=== PATIENT | male | born 1980 | race Caucasian/White ===

== ENCOUNTER 2017-10-24 15:22 | Inpatient (IN) | payer OTHER ==
[2017-10-24 18:42] VITALS: BMI 26.4
--- NOTE | 2017-10-24 21:01 | HP ---
Admission [facility] Chief Complaint: alcohol and marijuana rehab Allergies/Adverse Reactions: Allergies Allergy/AdvReac Type Severity Reaction Status Date / Time No Known Allergies Allergy Verified 10/24/17 19:24 History of Present Illness: 36 yo male with hx of nicotine, alcohol, marijuana, dependence is here seeking rehab, reports first time seeking treatment or current condition. Reports was seen at [facility] yesterday. PMHX: asthma. Denies any psychiatric problems. Denies suicidal ideation. Longest period of sobriety seven years. Exam Limitations: No Limitations - Ebola screening Have you traveled outside of the country in the last 21 days: No (N) Have you had contact with anyone from an Ebola affected area: No Have you been sick,other than usual withdrawal symptoms: No Do you have a fever: No - Review of Systems Constitutional: Changes in sleep EENT: reports: No Symptoms Reported Respiratory: reports: Wheezing Cardiac: reports: No Symptoms Reported GI: reports: No Symptoms Reported : reports: No Symptoms Reported Musculoskeletal: reports: Joint Pain, Other Integumentary: reports: No Symptoms Reported Neuro: reports: No Symptoms reported Endocrine: reports: Increased Thirst Hematology: reports: No Symptoms Reported Psychiatric: reports: Orientated x3, Agitated Other Systems: Reviewed and Negative Patient History - Patient Medical History Hx Anemia: No Hx Asthma: Yes Hx Chronic Obstructive Pulmonary Disease (COPD): No Hx Cancer: No Hx Cardiac Disorders: No Hx Congestive Heart Failure: No Hx Hypertension: No Hx Hypercholesterolemia: No Hx Pacemaker: No HX Cerebrovascular Accident: No Hx Seizures: No Hx Dementia: No Hx Diabetes: No Hx Gastrointestinal Disorders: No Hx Liver Disease: No Hx Genitourinary Disorders: No Hx Sexually Transmitted Disorders: No Hx Renal Disease (ESRD): No Hx Thyroid Disease: No Hx Human Immunodeficiency Virus (HIV): No (declines testing ) Hx Hepatitis C: No Hx Depression: No Hx Suicide Attempt: No Hx Bipolar Disorder: No Hx Schizophrenia: No - Patient Surgical History Past Surgical History: Yes Hx Neurologic Surgery: No Hx Cataract Extraction: No Hx Cardiac Surgery: No Hx Lung Surgery: No Hx Breast Surgery: No Hx Breast Biopsy: No Hx Abdominal Surgery: No Hx Appendectomy: No Hx Cholecystectomy: No Hx Genitourinary Surgery: No Hx Section: No Other Surgical History: Toncillectomy Anesthesia Reaction: No - PPD History Previous Implant?: Yes Documented Results: Negative w/o proof Implanted On Prior [facility] Admission?: No PPD to be Administered?: Yes - Smoking Cessation Smoking history: Current every day smoker Have you smoked in the past 12 months: Yes Aproximately how many cigarettes per day: 20 Hx Chewing Tobacco Use: No Initiated information on smoking cessation: Yes 'Breaking Loose' booklet given: 10/24/17 - Substance & Tx. History Hx Alcohol Use: Yes Hx Substance Use: Yes Substance Use Type: Alcohol Hx Substance Use Treatment: No - Substances Abused Alcohol Route: Oral Frequency: Daily Amount used: 24 oz beer Age of first use: 16 Date of Last Use: 10/24/17 Marijuana/Hashish Route: Smoking Frequency: 1-3 times last 30 days Amount used: 1 oz Date of Last Use: 08/24/17 Family Disease History - Family Disease History Family History: Denies Admission Physical Exam BHS - Vital Signs Vital Signs: Vital Signs - 24 hr 10/24/17 18:38 Temperature 97.8 F Pulse Rate 98 H Respiratory 18 Rate Blood Pressure 154/84 - Physical General Appearance: Yes: Disheveled, Thin, Sweating, Anxious HEENTM: Yes: EOMI, Hearing grossly Normal, Normal ENT Inspection, Normocephalic , Normal Voice, BLAYNE, Pharynx Normal, Tm's normal Respiratory: Yes: Chest Non-Tender, No Respiratory Distress, No Accessory Muscle Use, Wheezing Neck: Yes: Within Normal Limits Breast: Yes: Breast Exam Deferred Cardiology: Yes: Regular Rhythm, Regular Rate Abdominal: Yes: Normal Bowel Sounds, Non Tender, Flat, Soft Genitourinary: Yes: Within Normal Limits Back: Yes: Normal Inspection Musculoskeletal: Yes: full range of Motion, Gait Steady, Pelvis Stable Extremities: Yes: Normal Capillary Refill, Normal Inspection, Normal Range of Motion, Non-Tender Neurological: Yes: pump installation and servicer II-XII NML intact, Fully Oriented, Alert, Motor Strength 5/5, Depressed Affect Integumentary: Yes: Normal Color, Warm, Diaphoresis Lymphatic: Yes: Within Normal Limits - Diagnostic (1) Elevated blood pressure reading in office without diagnosis of hypertension Current Visit: Yes Status: Acute (2) Asthma Current Visit: Yes Status: Chronic Qualifiers: Asthma severity: moderate Asthma complication type: with acute exacerbation (3) Wheezing Current Visit: Yes Status: Acute (4) Alcohol dependence Current Visit: Yes Status: Acute Qualifiers: Substance use status: uncomplicated Qualified Code(s): F10.20 - Alcohol dependence, uncomplicated (5) Marijuana dependence Current Visit: Yes Status: Acute BHS Breath Alcohol Content Breath Alcohol Content: 0 Urine Drug Screen - Results Drug Screen Negative: Yes Inpatient Rehab Admission - Initial Determination Are CD services needed?: Yes Free of communicable disease: Yes Not in need of hospitalization: Yes - Rehab Admission Criteria Previous failed treatment: Yes Poor recovery environment: Yes Comorbidities: Yes Lacks judgement: Yes Patient is meeting Inpatient Rehab admission criteria:: Yes
[2017-10-24] MEDS ORDERED: MAGNESIUM CITRATE 300 ML BOTTLE PO PRN (21:06)
[2017-10-24] MEDS ORDERED: ACETAMINOPHEN 325 MG TABLET (FP) PO PRN (21:06)
[2017-10-24] MEDS ORDERED: MAGNESIUM HYDROX 2400MG/30ML ORAL SUSPENSION 30 ML CUP PO PRN (21:06)
[2017-10-24] MEDS ORDERED: P-EPHED 60MG/TRIPROLIDI 2.5MG TABLET PO PRN (21:06)
[2017-10-24] MEDS ORDERED: MENTHOL/PHENOL 1 EACH UD MM PRN (21:06)
[2017-10-24] MEDS ORDERED: LOPERAMIDE HCL 2 MG CAPSULE PO PRN (21:06)
[2017-10-24] MEDS ORDERED: ALBUTEROL SO4 0.083% IH SOL 2.5 MG/3 ML VIAL.NEB. NEB PRN (21:06)
[2017-10-25] MEDS: predniSONE 20 MG TABLET (UD) PO SCH ×2 (01:00→11:09)
[2017-10-25] MEDS: THIAMINE HCL 100 MG TABLET (FP) PO SCH ×2 (01:00→21:10)
[2017-10-25 01:07] LABS: URINE APPEARANCE CLEAR; URINE BILIRUBIN NEGATIVE (<2.0 mg/dL); URINE COLOR STRAW; URINE GLUCOSE (UA) NEGATIVE (NEGATIVE); URINE KETONE NEGATIVE (NEGATIVE); URINE LEUK ESTERASE NEGATIVE (NEGATIVE); URINE NITRITE NEGATIVE (NEGATIVE); URINE PROTEIN NEGATIVE (NEGATIVE); URINE UROBILINOGEN NEGATIVE mg/dL (0.2-1.0)
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
[2017-10-25] MEDS: PRENATAL VITAMINS W/ FOLIC ACID TABLET (FP) PO SCH (09:57)
[2017-10-25] MEDS: NICOTINE 14 MG/24 HOURS TOPICAL PATCH TD SCH (09:58)
[2017-10-25] MEDS: NICOTINE POLACRILEX 2 MG GUM BC PRN ×4 (10:02→21:11)
[2017-10-25] MEDS: ALBUTEROL SO4 2.5/IPRATROPIUM 0.5 INH SOL 3 ML VIAL.NEB. NEB PRN ×2 (12:54→19:06)
--- NOTE | 2017-10-25 12:59 | PN ---
S Progress Note Note: Vital Signs Temperature 97.8 F 10/24/17 18:38 Pulse Rate 102 H 10/24/17 21:00 Respiratory Rate 16 10/25/17 06:51 Blood Pressure 134/85 10/24/17 21:00 O2 Sat by Pulse Oximetry (%) Patient hx of asthma, request for albuterol inhaler order place continue to monitor
--- NOTE | 2017-10-25 13:16 | EKG ---
Test Reason : Blood Pressure : / mmHG Vent. Rate : 101 BPM Atrial Rate : 101 BPM P-R Int : 142 ms QRS Dur : 076 ms QT Int : 282 ms P-R-T Axes : 075 058 -02 degrees QTc Int : 365 ms SINUS TACHYCARDIA T WAVE ABNORMALITY, CONSIDER INFERIOR ISCHEMIA ABNORMAL ECG NO PREVIOUS ECGS AVAILABLE Confirmed by Ronnell Ramírez MD ([id number]) on 10/25/2017 1:16:08 PM Referred By: Confirmed By:Ronnell Ramírez MD
[2017-10-25 14:56] LABS: HEMATOCRIT 39.9 % (35.4-49); HEMOGLOBIN 13.6 GM/dL (11.7-16.9); MCH 30.7 pg (25.7-33.7); MCHC 34.2 g/dl (32.0-35.9); MEAN PLT VOLUME 8.4 fl (7.5-11.1); PLATELET COUNT 238 K/MM3 (134-434); RBC 4.44 M/mm3 (4.00-5.60); RDW 13.4 % (11.9-15.9); WHITE BLOOD COUNT 8.6 K/mm3 (4.0-10.0)
[2017-10-25 15:10] LABS: CHLORIDE 106 mmol/L (98-107); POTASSIUM 4.3 mmol/L (3.5-5.1); SODIUM 140 mmol/L (136-145)
[2017-10-25 15:18] LABS: ALBUMIN 3.9 g/dl (3.4-5.0); ALK PHOS 74 U/L (45-117); ANION GAP 5 MMOL/L (8-16); BILIRUBIN,TOTAL 0.6 mg/dL (0.2-1.0); BLOOD UREA NITROGEN 11 mg/dL (7-18); CALCIUM 8.9 mg/dL (8.5-10.1); CO2 29 mmol/L (21-32); CREATININE 0.8 mg/dL (0.7-1.3); GLUCOSE,RANDOM 94 mg/dL (74-106); SGOT/AST 20 U/L (15-37); SGPT/ALT 24 U/L (12-78)
[2017-10-25] MEDS: ALBUTEROL SO4 8 GM HFA INHALER IH PRN (18:30)
[2017-10-25] MEDS: hydrOXYzine PAMOATE 50 MG CAPSULE (FP) PO SCH (21:38)
[2017-10-26] MEDS: hydrOXYzine PAMOATE 50 MG CAPSULE (FP) PO SCH ×3 (07:45→21:10)
[2017-10-26] MEDS: NICOTINE 14 MG/24 HOURS TOPICAL PATCH TD SCH (11:00)
[2017-10-26] MEDS: PRENATAL VITAMINS W/ FOLIC ACID TABLET (FP) PO SCH (11:00)
[2017-10-26] MEDS: predniSONE 20 MG TABLET (UD) PO SCH (11:00)
[2017-10-26] MEDS: NICOTINE POLACRILEX 2 MG GUM BC PRN ×3 (11:06→19:48)
[2017-10-26] MEDS: guaiFENesin/D-METHORPHAN HB 10 ML UNIT-DOSE CUPS PO PRN ×2 (11:06→21:11)
[2017-10-26] MEDS: ALBUTEROL SO4 8 GM HFA INHALER IH PRN ×2 (14:17→19:48)
[2017-10-26] MEDS: THIAMINE HCL 100 MG TABLET (FP) PO SCH (21:10)
[2017-10-26] MEDS: MAG HYDROX/AL HYDROX/SIMETH 30 ML UNIT-DOSE CUP PO PRN (21:10)
[2017-10-27] MEDS: NICOTINE POLACRILEX 2 MG GUM BC PRN ×4 (02:47→18:42)
[2017-10-27] MEDS: hydrOXYzine PAMOATE 50 MG CAPSULE (FP) PO SCH ×3 (06:28→21:07)
[2017-10-27] MEDS: NICOTINE 14 MG/24 HOURS TOPICAL PATCH TD SCH (09:55)
[2017-10-27] MEDS: PRENATAL VITAMINS W/ FOLIC ACID TABLET (FP) PO SCH (09:56)
[2017-10-27] MEDS: ALBUTEROL SO4 8 GM HFA INHALER IH PRN (09:57)
[2017-10-27] MEDS: guaiFENesin/D-METHORPHAN HB 10 ML UNIT-DOSE CUPS PO PRN ×2 (13:13→18:42)
--- NOTE | 2017-10-27 14:19 | PN ---
S Progress Note Note: Vital Signs Temperature 97.1 F L 10/27/17 06:53 Pulse Rate 75 10/27/17 06:53 Respiratory Rate 18 10/27/17 06:53 Blood Pressure 104/76 10/27/17 06:53 O2 Sat by Pulse Oximetry (%) c/o of hx of sciatica on the left hip. C/O of left hip pain, denies any trauma to the area patient Aox3 no distress no adventitious breath sounds skin intact full ROM, no joint erythema or effusion left knee pain Plan: ibuprofen PRN cold compress elevate the extremity as needed continue to monitor
[2017-10-27] MEDS: IBUPROFEN 400 MG TABLET (FP) PO PRN (18:45)
[2017-10-27] MEDS: THIAMINE HCL 100 MG TABLET (FP) PO SCH (21:07)
[2017-10-27] MEDS: MELATONIN 5 MG TABLETS PO PRN (21:07)
[2017-10-28] MEDS: hydrOXYzine PAMOATE 50 MG CAPSULE (FP) PO SCH ×3 (07:16→21:00)
[2017-10-28] MEDS: NICOTINE 14 MG/24 HOURS TOPICAL PATCH TD SCH (09:50)
[2017-10-28] MEDS: PRENATAL VITAMINS W/ FOLIC ACID TABLET (FP) PO SCH (09:50)
[2017-10-28] MEDS: NICOTINE POLACRILEX 2 MG GUM BC PRN ×2 (09:50→20:26)
[2017-10-28] MEDS: ALBUTEROL SO4 8 GM HFA INHALER IH PRN ×2 (09:56→20:25)
[2017-10-28] MEDS: guaiFENesin/D-METHORPHAN HB 10 ML UNIT-DOSE CUPS PO PRN (09:57)
[2017-10-28] MEDS ORDERED: AZITHROMYCIN 250 MG TABLET PO ONE (14:00)
[2017-10-28] MEDS ORDERED: predniSONE 20 MG TABLET (UD) PO ONE (14:00)
[2017-10-28] MEDS: THIAMINE HCL 100 MG TABLET (FP) PO SCH (21:00)
[2017-10-29] MEDS: NICOTINE POLACRILEX 2 MG GUM BC PRN (07:02)
[2017-10-29] MEDS: hydrOXYzine PAMOATE 50 MG CAPSULE (FP) PO SCH ×3 (07:02→21:04)
[2017-10-29] MEDS: PRENATAL VITAMINS W/ FOLIC ACID TABLET (FP) PO SCH (09:42)
[2017-10-29] MEDS: AZITHROMYCIN 250 MG TABLET PO SCH (09:42)
[2017-10-29] MEDS: NICOTINE 14 MG/24 HOURS TOPICAL PATCH TD SCH (09:43)
[2017-10-29] MEDS ORDERED: predniSONE 10 MG TABLET (UD) PO ONE (10:00)
[2017-10-29] MEDS: THIAMINE HCL 100 MG TABLET (FP) PO SCH (21:04)
[2017-10-30] MEDS: hydrOXYzine PAMOATE 50 MG CAPSULE (FP) PO SCH ×3 (07:32→21:04)
[2017-10-30] MEDS: AZITHROMYCIN 250 MG TABLET PO SCH (09:31)
[2017-10-30] MEDS: NICOTINE 14 MG/24 HOURS TOPICAL PATCH TD SCH (09:32)
[2017-10-30] MEDS: PRENATAL VITAMINS W/ FOLIC ACID TABLET (FP) PO SCH (09:32)
[2017-10-30] MEDS: guaiFENesin/D-METHORPHAN HB 10 ML UNIT-DOSE CUPS PO PRN ×2 (09:33→21:04)
[2017-10-30] MEDS: NICOTINE POLACRILEX 2 MG GUM BC PRN (09:35)
[2017-10-30] MEDS ORDERED: predniSONE 20 MG TABLET (UD) PO ONE (10:00)
[2017-10-30] MEDS: THIAMINE HCL 100 MG TABLET (FP) PO SCH (21:04)
[2017-10-30] MEDS: ALBUTEROL SO4 8 GM HFA INHALER IH PRN (21:05)
[2017-10-31] MEDS: hydrOXYzine PAMOATE 50 MG CAPSULE (FP) PO SCH ×4 (07:49→22:14)
[2017-10-31] MEDS: AZITHROMYCIN 250 MG TABLET PO SCH (09:56)
[2017-10-31] MEDS: NICOTINE 14 MG/24 HOURS TOPICAL PATCH TD SCH (09:56)
[2017-10-31] MEDS: PRENATAL VITAMINS W/ FOLIC ACID TABLET (FP) PO SCH (09:56)
[2017-10-31] MEDS ORDERED: predniSONE 10 MG TABLET (UD) PO ONE (10:00)
--- NOTE | 2017-10-31 13:37 | PN ---
[facility] Progress Note Note: Vital Signs Temperature 97.9 F 10/29/17 07:03 Pulse Rate 83 10/29/17 07:03 Respiratory Rate 18 10/31/17 03:30 Blood Pressure 141/75 10/29/17 07:03 O2 Sat by Pulse Oximetry (%) Patient c/o of not feeling well and wheezing. Patient was treated last week with z-pack reports no relief c/o of ongoing cough. Patient on end of prednisone jay received 10 mg today. Reports poor adherence with following orders for nebulizer treatment. Aox3 no distress no JVD, s1 and s2 + cough and b/l lower lobe wheezing present , no repiratory distress full ROM ambualting in the unit skin intact, no edema present - asthma exacerbation Plan: Prednisone jay adjusted: today additional : 20mg = 30 mg for the day 11/01/17 : 20 mg 11/02/17 : 10 11/03/17 : 5 mg DueoNEB PRN as ordered montelukast 10 mg QHS guafinessin PRN increase fluids chest x-ray in AM rest for today continue to monitor
[2017-10-31] MEDS ORDERED: predniSONE 20 MG TABLET (UD) PO ONE (14:00)
[2017-10-31] MEDS: IBUPROFEN 400 MG TABLET (FP) PO PRN (19:21)
[2017-10-31] MEDS: THIAMINE HCL 100 MG TABLET (FP) PO SCH (22:15)
[2017-10-31] MEDS: MONTELUKAST NA 10 MG TABLET PO SCH (22:16)
[2017-10-31] MEDS: NICOTINE POLACRILEX 2 MG GUM BC PRN (22:17)
[2017-11-01] MEDS: hydrOXYzine PAMOATE 50 MG CAPSULE (FP) PO SCH ×3 (07:36→21:09)
[2017-11-01] MEDS: NICOTINE 14 MG/24 HOURS TOPICAL PATCH TD SCH (09:34)
[2017-11-01] MEDS: PRENATAL VITAMINS W/ FOLIC ACID TABLET (FP) PO SCH (09:34)
[2017-11-01] MEDS: ALBUTEROL SO4 8 GM HFA INHALER IH PRN (09:35)
[2017-11-01] MEDS: NICOTINE POLACRILEX 2 MG GUM BC PRN ×2 (09:36→14:21)
[2017-11-01] MEDS ORDERED: predniSONE 5 MG TABLET (UD) PO ONE (10:00)
[2017-11-01] MEDS ORDERED: predniSONE 10 MG TABLET (UD) PO ONE ×2 (13:30)
--- NOTE | 2017-11-01 13:37 | PN ---
[facility] Progress Note Note: Vital Signs Temperature 97.9 F 11/01/17 11:14 Pulse Rate 83 10/29/17 07:03 Respiratory Rate 18 11/01/17 03:30 Blood Pressure 133/77 11/01/17 11:14 O2 Sat by Pulse Oximetry (%) Patient requested consult for alopecia and link to vocational training. c/o of night cough. patient Aox3 no distress lungs clear throughout s1 s4 no JVD full ROM ambulating in the unit chest x-ray negative for pathology -asthma plan; continue prednisone jay increase fluids duoneb as needed patient educated to follow up with aircraft engine assembler regarding alopecia.patient verbalized understaning. continue to monitor
[2017-11-01] MEDS: MONTELUKAST NA 10 MG TABLET PO SCH (21:09)
[2017-11-01] MEDS: THIAMINE HCL 100 MG TABLET (FP) PO SCH (21:09)
[2017-11-02] MEDS: hydrOXYzine PAMOATE 50 MG CAPSULE (FP) PO SCH ×3 (06:07→21:04)
[2017-11-02] MEDS: NICOTINE 14 MG/24 HOURS TOPICAL PATCH TD SCH (10:30)
[2017-11-02] MEDS: PRENATAL VITAMINS W/ FOLIC ACID TABLET (FP) PO SCH (11:00)
--- NOTE | 2017-11-02 13:05 | PN ---
[facility] Progress Note Note: Vital Signs Temperature 98 F 11/02/17 06:39 Pulse Rate 70 11/02/17 06:39 Respiratory Rate 18 11/02/17 06:39 Blood Pressure 112/81 11/02/17 06:39 O2 Sat by Pulse Oximetry (%) Patient currently medically stable, continues with mild cough which has improved over the past couple of days. Chest x-ray negative for pathology. Patient may continue to resume group activities increase fluids continue to monitor
[2017-11-02] MEDS ORDERED: predniSONE 10 MG TABLET (UD) PO ONE (13:33)
[2017-11-02] MEDS: MONTELUKAST NA 10 MG TABLET PO SCH (21:04)
[2017-11-02] MEDS: THIAMINE HCL 100 MG TABLET (FP) PO SCH (21:04)
[2017-11-03] MEDS: hydrOXYzine PAMOATE 50 MG CAPSULE (FP) PO SCH ×3 (07:33→21:04)
[2017-11-03] MEDS: PRENATAL VITAMINS W/ FOLIC ACID TABLET (FP) PO SCH (10:31)
[2017-11-03] MEDS: IBUPROFEN 400 MG TABLET (FP) PO PRN (10:31)
[2017-11-03] MEDS: NICOTINE 14 MG/24 HOURS TOPICAL PATCH TD SCH (10:31)
[2017-11-03] MEDS ORDERED: BENZOCAINE 20 % GEL TUBE MM PRN (12:38)
--- NOTE | 2017-11-03 12:39 | PN ---
[facility] Progress Note Note: Vital Signs Temperature 98 F 11/02/17 06:39 Pulse Rate 70 11/02/17 06:39 Respiratory Rate 18 11/03/17 07:15 Blood Pressure 112/81 11/02/17 06:39 O2 Sat by Pulse Oximetry (%) c/o of dental pain anbesol pen ibuprofen prn continue to monitor
[2017-11-03] MEDS ORDERED: LIDOCAINE VISCOUS 2% ORAL/TOP 100 ML BOTTLE MM PRN (13:03)
[2017-11-03] MEDS ORDERED: predniSONE 5 MG TABLET (UD) PO ONE (13:34)
[2017-11-03] MEDS: MONTELUKAST NA 10 MG TABLET PO SCH (21:04)
[2017-11-03] MEDS: THIAMINE HCL 100 MG TABLET (FP) PO SCH (21:04)
[2017-11-03] MEDS: NICOTINE POLACRILEX 2 MG GUM BC PRN (21:05)
[2017-11-04] MEDS: hydrOXYzine PAMOATE 50 MG CAPSULE (FP) PO SCH ×3 (06:30→21:03)
[2017-11-04] MEDS: NICOTINE POLACRILEX 2 MG GUM BC PRN ×3 (09:40→15:44)
[2017-11-04] MEDS: PRENATAL VITAMINS W/ FOLIC ACID TABLET (FP) PO SCH (09:40)
[2017-11-04] MEDS: NICOTINE 14 MG/24 HOURS TOPICAL PATCH TD SCH (09:41)
[2017-11-04] MEDS: THIAMINE HCL 100 MG TABLET (FP) PO SCH (21:03)
[2017-11-04] MEDS: MONTELUKAST NA 10 MG TABLET PO SCH (21:03)
[2017-11-05] MEDS: hydrOXYzine PAMOATE 50 MG CAPSULE (FP) PO SCH ×3 (07:05→21:08)
[2017-11-05] MEDS: PRENATAL VITAMINS W/ FOLIC ACID TABLET (FP) PO SCH (09:45)
[2017-11-05] MEDS: NICOTINE 14 MG/24 HOURS TOPICAL PATCH TD SCH (09:46)
[2017-11-05] MEDS: NICOTINE POLACRILEX 2 MG GUM BC PRN ×4 (09:46→22:11)
[2017-11-05] MEDS: MONTELUKAST NA 10 MG TABLET PO SCH (21:08)
[2017-11-05] MEDS: THIAMINE HCL 100 MG TABLET (FP) PO SCH (21:08)
[2017-11-06] MEDS: hydrOXYzine PAMOATE 50 MG CAPSULE (FP) PO SCH ×3 (06:54→23:12)
[2017-11-06] MEDS: PRENATAL VITAMINS W/ FOLIC ACID TABLET (FP) PO SCH (10:17)
[2017-11-06] MEDS: NICOTINE 14 MG/24 HOURS TOPICAL PATCH TD SCH (10:17)
[2017-11-06] MEDS: IBUPROFEN 400 MG TABLET (FP) PO PRN (14:51)
[2017-11-06] MEDS: NICOTINE POLACRILEX 2 MG GUM BC PRN (16:20)
[2017-11-06] MEDS: THIAMINE HCL 100 MG TABLET (FP) PO SCH (23:12)
[2017-11-06] MEDS: MONTELUKAST NA 10 MG TABLET PO SCH (23:12)
[2017-11-07] MEDS: hydrOXYzine PAMOATE 50 MG CAPSULE (FP) PO SCH ×3 (06:42→21:12)
[2017-11-07] MEDS: PRENATAL VITAMINS W/ FOLIC ACID TABLET (FP) PO SCH (09:37)
[2017-11-07] MEDS: NICOTINE 14 MG/24 HOURS TOPICAL PATCH TD SCH (09:37)
[2017-11-07] MEDS: NICOTINE POLACRILEX 2 MG GUM BC PRN ×3 (09:39→21:14)
[2017-11-07] MEDS: MAG HYDROX/AL HYDROX/SIMETH 30 ML UNIT-DOSE CUP PO PRN (17:53)
[2017-11-07] MEDS: MONTELUKAST NA 10 MG TABLET PO SCH (21:12)
[2017-11-07] MEDS: THIAMINE HCL 100 MG TABLET (FP) PO SCH (21:12)
[2017-11-08] MEDS: hydrOXYzine PAMOATE 50 MG CAPSULE (FP) PO SCH ×3 (06:17→21:09)
[2017-11-08] MEDS: PRENATAL VITAMINS W/ FOLIC ACID TABLET (FP) PO SCH (11:00)
[2017-11-08] MEDS: NICOTINE 14 MG/24 HOURS TOPICAL PATCH TD SCH (11:00)
[2017-11-08] MEDS: NICOTINE POLACRILEX 2 MG GUM BC PRN (13:04)
[2017-11-08] MEDS: MONTELUKAST NA 10 MG TABLET PO SCH (21:09)
[2017-11-08] MEDS: THIAMINE HCL 100 MG TABLET (FP) PO SCH (21:09)
[2017-11-09] MEDS: hydrOXYzine PAMOATE 50 MG CAPSULE (FP) PO SCH ×3 (07:05→21:12)
[2017-11-09] MEDS: PRENATAL VITAMINS W/ FOLIC ACID TABLET (FP) PO SCH (09:38)
[2017-11-09] MEDS: NICOTINE 14 MG/24 HOURS TOPICAL PATCH TD SCH (09:38)
--- NOTE | 2017-11-09 14:03 | PN ---
[facility] Progress Note Note: Vital Signs Temperature 97.4 F L 11/09/17 10:00 Pulse Rate 77 11/09/17 10:00 Respiratory Rate 18 11/09/17 10:00 Blood Pressure 129/75 11/09/17 10:00 O2 Sat by Pulse Oximetry (%) Patient reports rash on face and thinks it may be herpes. patient evaluated: patient Aox3 no distress, anxious s ski intact, mild erythema and dry skin around the nasal labi folds no adventitious breath sounds full ROM - dry skin Patient has not attended group several times during his stay , complains not feeling well. Patient is medically stable and is able to actively participate in group therapy. Intervention meeting held with patient, myself, counselor: Mrs. Razo and director El[place], to address patients poor attendance to group therapy and need for patient to participate in group. Patient understands the need for him to participate in group and is aware to notify the staff of any changes. Patient in stable condition continue to monitor
[2017-11-09] MEDS: NICOTINE POLACRILEX 2 MG GUM BC PRN ×2 (14:23→19:46)
[2017-11-09] MEDS: BACITRACIN 0.9 GM PACKET TP SCH (21:12)
[2017-11-09] MEDS: MONTELUKAST NA 10 MG TABLET PO SCH (21:12)
[2017-11-09] MEDS: THIAMINE HCL 100 MG TABLET (FP) PO SCH (21:13)
[2017-11-09] MEDS: MELATONIN 5 MG TABLETS PO PRN (21:13)
[2017-11-10] MEDS: hydrOXYzine PAMOATE 50 MG CAPSULE (FP) PO SCH ×3 (06:25→21:07)
[2017-11-10] MEDS: BACITRACIN 0.9 GM PACKET TP SCH ×2 (09:36→21:07)
[2017-11-10] MEDS: PRENATAL VITAMINS W/ FOLIC ACID TABLET (FP) PO SCH (09:36)
[2017-11-10] MEDS: NICOTINE 14 MG/24 HOURS TOPICAL PATCH TD SCH (09:36)
[2017-11-10] MEDS: NICOTINE POLACRILEX 2 MG GUM BC PRN ×2 (09:38→14:06)
[2017-11-10] MEDS: THIAMINE HCL 100 MG TABLET (FP) PO SCH (21:07)
[2017-11-10] MEDS: MONTELUKAST NA 10 MG TABLET PO SCH (21:07)
[2017-11-11] MEDS: hydrOXYzine PAMOATE 50 MG CAPSULE (FP) PO SCH ×3 (06:55→22:39)
[2017-11-11] MEDS: NICOTINE 14 MG/24 HOURS TOPICAL PATCH TD SCH (09:46)
[2017-11-11] MEDS: PRENATAL VITAMINS W/ FOLIC ACID TABLET (FP) PO SCH (09:46)
[2017-11-11] MEDS: BACITRACIN 0.9 GM PACKET TP SCH ×2 (09:47→22:38)
[2017-11-11] MEDS: NICOTINE POLACRILEX 2 MG GUM BC PRN (09:47)
[2017-11-11] MEDS: MONTELUKAST NA 10 MG TABLET PO SCH (22:38)
[2017-11-11] MEDS: THIAMINE HCL 100 MG TABLET (FP) PO SCH (22:39)
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
[2017-11-12] MEDS: hydrOXYzine PAMOATE 50 MG CAPSULE (FP) PO SCH ×3 (06:08→21:48)
[2017-11-12] MEDS: NICOTINE 14 MG/24 HOURS TOPICAL PATCH TD SCH (11:00)
[2017-11-12] MEDS: BACITRACIN 0.9 GM PACKET TP SCH ×2 (11:00→21:48)
[2017-11-12] MEDS: PRENATAL VITAMINS W/ FOLIC ACID TABLET (FP) PO SCH (11:00)
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
[2017-11-12] MEDS: THIAMINE HCL 100 MG TABLET (FP) PO SCH (21:48)
[2017-11-12] MEDS: MONTELUKAST NA 10 MG TABLET PO SCH (21:48)
[2017-11-13] MEDS: hydrOXYzine PAMOATE 50 MG CAPSULE (FP) PO SCH ×3 (07:37→21:58)
[2017-11-13] MEDS: BACITRACIN 0.9 GM PACKET TP SCH ×2 (10:50→21:58)
[2017-11-13] MEDS: NICOTINE 14 MG/24 HOURS TOPICAL PATCH TD SCH (10:50)
[2017-11-13] MEDS: PRENATAL VITAMINS W/ FOLIC ACID TABLET (FP) PO SCH (10:50)
[2017-11-13 11:30] VITALS: TEMP 98.2
[2017-11-13] MEDS: THIAMINE HCL 100 MG TABLET (FP) PO SCH (21:58)
[2017-11-13] MEDS: MONTELUKAST NA 10 MG TABLET PO SCH (21:58)
[2017-11-14] MEDS: hydrOXYzine PAMOATE 50 MG CAPSULE (FP) PO SCH ×3 (07:25→22:13)
[2017-11-14] MEDS: PRENATAL VITAMINS W/ FOLIC ACID TABLET (FP) PO SCH (10:34)
[2017-11-14] MEDS: BACITRACIN 0.9 GM PACKET TP SCH ×2 (10:34→22:13)
[2017-11-14] MEDS: NICOTINE 14 MG/24 HOURS TOPICAL PATCH TD SCH (10:34)
[2017-11-14] MEDS: THIAMINE HCL 100 MG TABLET (FP) PO SCH (22:13)
[2017-11-14] MEDS: MONTELUKAST NA 10 MG TABLET PO SCH (22:13)
[2017-11-14] MEDS: NICOTINE POLACRILEX 2 MG GUM BC PRN (22:14)
[2017-11-15] MEDS: hydrOXYzine PAMOATE 50 MG CAPSULE (FP) PO SCH ×3 (07:20→21:39)
[2017-11-15] MEDS: NICOTINE POLACRILEX 2 MG GUM BC PRN ×3 (10:48→21:40)
[2017-11-15] MEDS: BACITRACIN 0.9 GM PACKET TP SCH ×2 (10:48→21:39)
[2017-11-15] MEDS: NICOTINE 14 MG/24 HOURS TOPICAL PATCH TD SCH (10:48)
[2017-11-15] MEDS: PRENATAL VITAMINS W/ FOLIC ACID TABLET (FP) PO SCH (10:48)
[2017-11-15 15:38] VITALS: BP 124/80; PULSE 78
--- NOTE | 2017-11-15 18:50 | PN ---
[facility] Progress [facility] Note: Psychiatry Attending's note (follow up) : Case discussed,on 11/14/17, with GAEL Keating. Routine follow up visit.Chart reviewed.Met with patient. Doing well.Mr Fuller is noted as pleasant,friendly.Well groomed. Normal conversation.Reports feeling fine.Complaints : none. Endorses fair sleep,adequate appetite and energy level. Prefers to stay by himself " to avoid issues with people ". Adherent to terms and conditions of treatment at [facility]. NOT psychotic.Denies prior exposure to antipsychotic medications. Cognitively intact.Ambulatory.No somatic issues to address.Baseline. Unremarkable mental status.
[2017-11-15] MEDS: MONTELUKAST NA 10 MG TABLET PO SCH (21:39)
[2017-11-15] MEDS: THIAMINE HCL 100 MG TABLET (FP) PO SCH (21:39)
[2017-11-16] MEDS: hydrOXYzine PAMOATE 50 MG CAPSULE (FP) PO SCH ×3 (07:06→21:42)
[2017-11-16] MEDS: NICOTINE 14 MG/24 HOURS TOPICAL PATCH TD SCH (10:34)
[2017-11-16] MEDS: PRENATAL VITAMINS W/ FOLIC ACID TABLET (FP) PO SCH (10:34)
[2017-11-16] MEDS: NICOTINE POLACRILEX 2 MG GUM BC PRN ×2 (10:35→21:43)
[2017-11-16] MEDS: BACITRACIN 0.9 GM PACKET TP SCH ×2 (10:35→21:43)
[2017-11-16] MEDS: MONTELUKAST NA 10 MG TABLET PO SCH (21:42)
[2017-11-16] MEDS: THIAMINE HCL 100 MG TABLET (FP) PO SCH (21:43)
[2017-11-17] MEDS: hydrOXYzine PAMOATE 50 MG CAPSULE (FP) PO SCH ×3 (07:36→21:53)
[2017-11-17] MEDS: NICOTINE 14 MG/24 HOURS TOPICAL PATCH TD SCH (10:37)
[2017-11-17] MEDS: PRENATAL VITAMINS W/ FOLIC ACID TABLET (FP) PO SCH (10:38)
[2017-11-17] MEDS: BACITRACIN 0.9 GM PACKET TP SCH ×2 (10:38→21:53)
[2017-11-17] MEDS: NICOTINE POLACRILEX 2 MG GUM BC PRN ×3 (10:38→21:54)
--- NOTE | 2017-11-17 12:39 | PN ---
Psychiatric Progress Note Vital Signs: Vital Signs Period Temp Pulse Resp BP Sys/Pinto Pulse Ox Last 24 Hr Date of Session: 11/17/17 Chief Complaint:: Discharge Note HPI: Patient addressing Alcohol and Cannabis dependence comorbid with Nicotine Dependence, substance-Induced Mood disorder and Substance-Induced Sleep Disorder ROS: Asthma Current Medications: Active Medications Generic Name Dose Route Start Last Admin Trade Name Freq PRN Reason Stop Dose Admin Acetaminophen 650 mg 10/24/17 21:06 10/27/17 04:15 Tylenol - PO 650 mg Q4H PRN Administration FEVER Al Hydroxide/Mg Hydroxide 30 ml 10/24/17 21:06 11/07/17 17:53 Mylanta Oral Suspension - PO 30 ml Q6H PRN Administration DYSPEPSIA Albuterol Sulfate 2 puff 10/25/17 12:58 11/01/17 09:35 Ventolin Hfa Inhaler - IH 2 puff Q4H PRN Administration SHORT OF BREATH/WHEEZING Albuterol/Ipratropium 1 amp 10/24/17 21:12 10/25/17 19:06 Duoneb - NEB 1 amp Q6H PRN Administration SHORTNESS OF BREATH Bacitracin 0.9 gm 11/09/17 22:00 11/17/17 10:38 Bacitracin - TP 0.9 gm BID EVE Administration Eucalyptus/Menthol/Phenol/Sorbitol 1 each 10/24/17 21:06 10/27/17 02:47 Cepastat Lozenge - MM 1 each Q4H PRN Administration SORE THROAT Guaifenesin 10 ml 10/24/17 21:06 10/30/17 21:04 Robitussin Dm - PO 10 ml Q6H PRN Administration COUGH Hydroxyzine Pamoate 50 mg 10/25/17 22:00 11/17/17 07:36 Vistaril - PO Not Given TID EVE Ibuprofen 400 mg 10/24/17 21:06 11/06/17 14:51 Motrin - PO 400 mg Q6H PRN Administration Pain level 4-6 Lidocaine HCl 15 ml 11/03/17 13:03 Xylocaine 2% Viscous MM Q6H PRN Dentalgia Loperamide HCl 4 mg 10/24/17 21:06 Imodium - PO Q6H PRN DIARRHEA Magnesium Citrate 300 ml 10/24/17 21:06 Citroma - PO Q48H PRN CONSTIPATION Magnesium Hydroxide 30 ml 10/24/17 21:06 Milk Of Magnesia - PO DAILY PRN CONSTIPATION Melatonin 5 mg 10/24/17 22:00 11/09/17 21:13 Melatonin PO 5 mg HS PRN Administration INSOMNIA Montelukast Sodium 10 mg 10/31/17 22:00 11/16/17 21:42 Singulair - PO 10 mg HS EVE Administration Nicotine 14 mg 10/25/17 10:00 11/17/17 10:37 Nicoderm Patch - TD 14 mg DAILY EVE Administration Nicotine Polacrilex 2 mg 10/24/17 21:06 11/17/17 10:38 Nicorette Gum - BC 2 mg Q2H PRN Administration NICOTINE REPLACEMENT RX Multivit/Folic Acid/Iron 1 tab 10/25/17 10:00 11/17/17 10:38 Vitamins (Sjr) - PO 1 tab DAILY EVE Administration Pseudoephedrine/Triprolidine 1 combo 10/24/17 21:06 Actifed - PO TID PRN NASAL CONGESTION Thiamine HCl 100 mg 10/24/17 22:00 11/16/17 21:43 Vitamin B1 - PO 100 mg HS EVE Administration Current Side Effect: No Lab tests ordered: Yes Lab tests reviewed: Yes Provider note:: Patient will complete this program on 11/18/17. He has met his treatment goals and will continue to address his issues in nursing home residential treatment at [facility]. Told speech writer that from his participation in this program, he has learned the iportance of surrounding himself with a sober support network in order to maintain abstinence. He is stable for discharge on 11/18/17 Total face to face time:: 35 Mental Status Exam - Mental Status Exam Alert and Oriented to: Time, Place, Person Cognitive Function: Fair Patient Appearance: Well Groomed Mood: Hopeful, Euthymic Affect: Flat, Blunted Patient Behavior: Cooperative Speech Pattern: Clear Voice Loudness: Normal Thought Process: Intact Thought Disorder: Not Present Hallucinations: Denies Homicidal Ideation: Denies Insight/Judgement: Fair Sleep: Fair Appetite: Good Muscle strength/Tone: Normal Gait/Station: Normal Psychiatric Treatment Plan - Problem List (1) Alcohol dependence Current Visit: Yes Qualifiers: Substance use status: uncomplicated Qualified Code(s): F10.20 - Alcohol dependence, uncomplicated (2) Cannabis dependence Current Visit: Yes (3) Nicotine dependence Current Visit: Yes (4) Substance induced mood disorder Current Visit: Yes (5) Substance-induced sleep disorder Current Visit: Yes (6) Asthma Current Visit: Yes Qualifiers: Asthma severity: severe Asthma persistence: persistent Asthma complication type: with acute exacerbation Qualified Code(s): J45.51 - Severe persistent asthma with (acute) exacerbation Initial treatment plan: Patient will be discharged tomorrow and referred to [facility] for nursing home residential treatment
--- NOTE | 2017-11-17 15:38 | PN ---
[facility] Progress Note Note: Vital Signs Temperature 98.2 F 11/13/17 10:00 Pulse Rate 78 11/15/17 10:00 Respiratory Rate 18 11/17/17 07:36 Blood Pressure 124/80 11/15/17 10:00 O2 Sat by Pulse Oximetry (%) Patient medically stable. Patient will complete this program on 11/18/17. Patient to follow with his primary care provider in 1 -2 weeks. Patient to follow up with referral to [facility] treatment at [facility].
[2017-11-17] MEDS: MONTELUKAST NA 10 MG TABLET PO SCH (21:53)
[2017-11-17] MEDS: THIAMINE HCL 100 MG TABLET (FP) PO SCH (21:53)
[2017-11-18] MEDS: hydrOXYzine PAMOATE 50 MG CAPSULE (FP) PO SCH (07:01)
[2017-11-18] MEDS: PRENATAL VITAMINS W/ FOLIC ACID TABLET (FP) PO SCH (10:04)
[2017-11-18] MEDS: NICOTINE POLACRILEX 2 MG GUM BC PRN (10:04)
[2017-11-18] MEDS: NICOTINE 14 MG/24 HOURS TOPICAL PATCH TD SCH (10:04)
[2017-11-18] MEDS: BACITRACIN 0.9 GM PACKET TP SCH (10:04)
== END 2017-11-18 11:00 | disposition other institution (70) | DRG 772 ==
LOC: YASAS 15:22 → Y5N 19:41 → Y3N 11-12 16:41 → Y5N 11-12 16:44
PROVIDERS: ADMIT Psychiatry & Neurology Psychiatry; ATTEND Psychiatry & Neurology Psychiatry
PROC: HZ42ZZZ Group Counseling for Substance Abuse Treatment, Cognitive-Behavioral (ICD-10-PCS; principal; 2017-10-24)
DX: F10.20 Alcohol dependence, uncomplicated (principal); F12.20 Cannabis dependence, uncomplicated; F17.210 Nicotine dependence, cigarettes, uncomplicated; F19.24 Other psychoactive substance dependence with psychoactive substance-induced mood disorder; F19.282 Other psychoactive substance dependence with psychoactive substance-induced sleep disorder; J45.51 Severe persistent asthma with (acute) exacerbation; M25.562 Pain in left knee; R03.0 Elevated blood-pressure reading, without diagnosis of hypertension; Z59.0 Homelessness
CPT/HCPCS: 36415; 71046-TC-FY; 80053; 81003; 81015; 85027; 86593; 93005; 93010; 94640; J7620

== ENCOUNTER 2017-11-11 21:59 | Emergency (ER) | payer OTHER ==
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
[2017-11-11 22:13] VITALS: BP 123/64; PULSE 64; TEMP 99.2; BMI 26.5
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
[2017-11-11] MEDS ORDERED: MUPIROCIN CA 2% TOPICAL CREAM 15 GM TUBE TP SCH (22:45)
== END 2017-11-11 23:50 | disposition home or self-care (01) ==
LOC: JER 21:59
DX: Z04.6 Encounter for general psychiatric examination, requested by authority (principal); L73.8 Other specified follicular disorders; F10.220 Alcohol dependence with intoxication, uncomplicated; F12.20 Cannabis dependence, uncomplicated; F17.210 Nicotine dependence, cigarettes, uncomplicated; Z59.0 Homelessness
CPT/HCPCS: 99282-25

== ENCOUNTER 2023-09-14 21:23 | Inpatient (IN) | payer OTHER ==
[2023-09-15 00:40] VITALS: BMI 30.1
[2023-09-15] MEDS ORDERED: BENZONATATE 200 MG CAPSULE PO PRN (01:33)
[2023-09-15] MEDS ORDERED: NICOTINE POLACRILEX 2 MG GUM BUC PRN (01:33)
[2023-09-15] MEDS ORDERED: BENZOCAINE/MENTHOL (CHLORASEPTIC ) LOZENGE MM PRN (01:33)
[2023-09-15] MEDS ORDERED: MAGNESIUM HYDROX 2400MG/30ML ORAL SUSPENSION 30 ML CUP PO PRN (01:33)
[2023-09-15] MEDS ORDERED: IBUPROFEN 400 MG TABLET (FP) PO PRN (01:33)
[2023-09-15] MEDS ORDERED: LOPERAMIDE HCL 2 MG CAPSULE PO PRN (01:33)
[2023-09-15] MEDS ORDERED: BISMUTH SUBSALICYLATE 524 MG/30 ML PO PRN (01:33)
[2023-09-15] MEDS ORDERED: NALOXONE HCL 0.4 MG/ML VIAL IM PRN (01:33)
[2023-09-15] MEDS ORDERED: NALOXONE (NARCAN) HCL 4 MG/0.1 ML SPRAY NS PRN (01:33)
[2023-09-15] MEDS ORDERED: DICYCLOMINE HCL 10 MG CAPSULE PO PRN (01:33)
[2023-09-15] MEDS ORDERED: hydrOXYzine PAMOATE 25 MG CAPSULE (FP) PO PRN (01:33)
[2023-09-15] MEDS ORDERED: ACETAMINOPHEN 325 MG TABLET (FP) PO PRN (01:33)
[2023-09-15] MEDS ORDERED: POLYETHYLENE GLYCOL (HEALTHYLAX) 3350 17 GM PACKET PO PRN (01:33)
[2023-09-15] MEDS ORDERED: MAG HYDROX/AL HYDROX/SIMETH 30 ML UNIT-DOSE CUP PO PRN (01:33)
[2023-09-15] MEDS ORDERED: ONDANSETRON *ODT* 4 MG TABLET SL PRN (01:33)
[2023-09-15] MEDS ORDERED: guaiFENesin 600 MG TABLET.ER (FP) PO PRN (01:33)
[2023-09-15] MEDS ORDERED: IBUPROFEN 600 MG TABLET (FP) PO PRN (01:33)
[2023-09-15] MEDS: PRENATAL VITAMINS W/ FOLIC ACID TABLET (FP) PO SCH (09:44)
[2023-09-15] MEDS: NICOTINE 21 MG/24 HOURS TOPICAL PATCH TD SCH (09:58)
[2023-09-15] MEDS ORDERED: diazePAM 5 MG TABLET PO PRN (10:12)
[2023-09-15] MEDS ORDERED: ALBUTEROL SO4 HFA INHALER IH PRN (10:30)
[2023-09-15 11:42] LABS: HEMATOCRIT 37.3 % (35.4-49); MCH 31.2 pg (25.7-33.7); MCHC 34.9 g/dl (32.0-35.9); MEAN CELL VOLUME 89.2 fl (80-96); MEAN PLT VOLUME 8.1 fl (7.5-11.1); PLATELET COUNT 242 10^3/uL (134-434); RBC 4.18 M/mm3 (4.00-5.60); RDW 13.5 % (11.9-15.9); WHITE BLOOD COUNT 6.2 K/mm3 (4.0-10.0)
[2023-09-15] MEDS: diazePAM 5 MG TABLET PO SCH (11:52)
[2023-09-15 11:53] LABS: CHLORIDE 108 mmol/L (98-107); POTASSIUM 3.9 mmol/L (3.5-5.1); SODIUM 141 mmol/L (136-145)
[2023-09-15 12:18] LABS: ALBUMIN 3.7 g/dl (3.4-5.0); ANION GAP 5 mmol/L (4-13); BLOOD UREA NITROGEN 12.3 mg/dL (7-18); CALCIUM 8.5 mg/dL (8.5-10.1); CO2 27 mmol/L (21-32); GLUCOSE,RANDOM 94 mg/dL (74-106)
[2023-09-15 12:21] LABS: CREATININE 0.8 mg/dL (0.55-1.3); SGPT/ALT 35 U/L (13-61)
[2023-09-15 12:22] LABS: SGOT/AST 23 U/L (15-37); TOT PROT 6.7 g/dl (6.4-8.2)
[2023-09-15 12:23] LABS: BILIRUBIN,TOTAL 0.2 mg/dL (0.2-1)
[2023-09-15 12:24] LABS: ALK PHOS 66 U/L (45-117)
[2023-09-15] MEDS: MELATONIN 5 MG TABLETS PO SCH (23:13)
[2023-09-15] MEDS: THIAMINE 100 MG TABLET PO SCH (23:13)
[2023-09-15] MEDS: MONTELUKAST NA 10 MG TABLET PO SCH (23:14)
[2023-09-17] MEDS: diazePAM 5 MG TABLET PO SCH (06:37)
[2023-09-18] MEDS: diazePAM 5 MG TABLET PO SCH (05:36)
[2023-09-19] MEDS: diazePAM 5 MG TABLET PO ONE (06:04)
[2023-09-19 09:43] VITALS: BP 124/76; PULSE 79; RESP 18; TEMP 98.6
== END 2023-09-19 10:35 | disposition other institution (70) | DRG 775 ==
LOC: YASAS 21:23 → Y3N 09-15 04:47
PROVIDERS: ADMIT Allergy & Immunology; ATTEND Surgery
PROC: HZ2ZZZZ Detoxification Services for Substance Abuse Treatment (ICD-10-PCS; principal; 2023-09-15)
DX: F10.230 Alcohol dependence with withdrawal, uncomplicated (principal); F12.20 Cannabis dependence, uncomplicated; F17.210 Nicotine dependence, cigarettes, uncomplicated; F20.9 Schizophrenia, unspecified; F19.282 Other psychoactive substance dependence with psychoactive substance-induced sleep disorder; F19.24 Other psychoactive substance dependence with psychoactive substance-induced mood disorder; F29 Unspecified psychosis not due to a substance or known physiological condition; J45.50 Severe persistent asthma, uncomplicated
CPT/HCPCS: 36415; 80053; 80305; 80307; 85027; 86780; 93005; 93010